=== PATIENT | male | born 1990 | race African-American/Black ===

== ENCOUNTER 2018-08-06 00:57 | Emergency (ER) | payer SELFPAY ==
[2018-08-06 01:08] VITALS: BP 134/67; PULSE 73; RESP 23; TEMP 36.7; O2SAT 98; BMI 42.7
--- NOTE | 2018-08-06 01:12 | DI.RAD.S_ITS ---
PROCEDURE: XR CHEST 1V INDICATIONS: chest pain TECHNIQUE: One view of the chest was acquired. COMPARISON: None. FINDINGS: Surgical changes and devices: None. Lungs and pleura: No pleural effusions or pneumothorax. Lungs are clear. Mediastinum: Mediastinal contours appear normal. Heart size is normal. Bones and chest wall: No suspicious bony lesions. Overlying soft tissues appear unremarkable. IMPRESSION: Reduced inspiratory volume, lordotic position, no definite acute disease when this is taken into account. Dictated by: Will Pace M.D. on 08/06/2018 at 8:49 Approved by: Will Pace M.D. on 08/06/2018 at 8:49
[2018-08-06 01:38] VITALS: BP 116/64; PULSE 70; RESP 17; O2SAT 100
[2018-08-06 01:50] LABS: Add Manual Diff / Slide Review NO; Basophils Percent Auto 1.1 % (0-2); Eosinophils Percent Auto 2.6 % (2-4); Hematocrit 42.6 % (41-53); Hemoglobin 14.4 g/dL (13.5-17.5); Lymphocytes Percent Auto 31.5 % (25-40); Mean Corpuscular HGB Conc 33.7 % (30-36); Mean Corpuscular Hemoglobin 27.6 PG (26-34); Mean Corpuscular Volume 81.8 fL (80-100); Monocytes Percent Auto 9.1 % (3-14); Neutrophils Absolute Auto 3200 /uL (1500-7000); Neutrophils Percent Auto 55.7 % (50-75); Platelet Count 231 X10^3/uL (150-400); Red Blood Cell Count 5.21 X10^6/uL (4.5-5.9); Red Cell Distribution Width 14.2 % (11.6-14.8); White Blood Cell Count 5.8 X10^3/uL (4.5-11.0)
[2018-08-06 01:59] LABS: INR 1.1 (0.9-1.3); Prothrombin Time 12.4 SECONDS (10.1-12.7)
[2018-08-06 02:01] LABS: PTT Partial Thromboplastin Tim 32 SECONDS (26.4-36.2)
[2018-08-06 02:10] LABS: Alanine Aminotransferase 40 IU/L (21-72); Albumin 4.4 g/dL (3.5-5.0); Albumin Globulin Ratio 1.5 (1.0-2.8); Alkaline Phosphatase 55 U/L (38-126); Aspartate Aminotransferase 31 IU/L (17-59); BUN Creatinine Ratio 15.6 (6-22); Bilirubin Total 0.5 mg/dL (0.2-1.3); Blood Urea Nitrogen 14 mg/dL (9-20); Calcium 9.4 mg/dL (8.4-10.2); Carbon Dioxide 26 mmol/L (22-32); Chloride 103 mmol/L (98-107); Creatine Kinase 622 U/L (55-170); Estimated Glomerular Filt Rate > 60.0 mL/min (>60); Globulin 2.9 g/dL (1.7-4.1); Glucose 99 mg/dL (70-100); HEMOLYSIS < 15 (0-50); Lipase 100 U/L (23-300); Potassium 4.2 mmol/L (3.4-5.1); Sodium 141 mmol/L (137-145); Total Protein 7.3 g/dL (6.3-8.2)
--- NOTE | 2018-08-06 02:16 | ED.CHESTPAIN ---
HPI - Chest Pain General Chief Complaint: Chest Pain Stated Complaint: LEFT UPPER SIDE ABDOMINAL PAIN Time Seen by Provider: 08/06/18 02:15 Source: patient Mode of arrival: ambulatory Limitations: no limitations History of Present Illness HPI narrative: Patient is a 28-year-old male who presents with left-sided chest pain ongoing for last 2 days. It hurts to move patient whenever he moves of or breathes. It is nonradiating. He denies any other injury. No persistent coughing. Pain is reproducible with palpation. He denies any shortness of breath is nausea vomiting. No abdominal pain. MD complaint: chest pain Onset (ago): day(s) (2) Duration: intermittent Severity: moderate Exacerbating factors: palpation and movement Related Data Home Medications Medication Instructions Recorded Confirmed No Known Home Medications 08/06/18 08/06/18 Allergies Allergy/AdvReac Type Severity Reaction Status Date / Time No Known Allergies Allergy Uncoded 11/17/17 12:41 Review of Systems Review of Systems GENERAL: Denies chills, fatigue, malaise, fever, sweats, travel HEENT: Denies sinus pain, ear pain, sore throat, difficulty swallowing, neck pain RESPIRATORY: Denies dyspnea, cough, wheezing, hemoptysis, sputum. CARDIOVASCULAR: See HPI GASTROINTESTINAL: Denies nausea, vomiting, abdominal pain, diarrhea, constipation, melena. : Denies dysuria, frequency, incontinence, hematuria, urinary retention, flank pain. MUSCULOSKELETAL: Denies weakness, joint pain, or bony pain SKIN: No rash, no erythema, no pruritus NEUROLOGIC: Denies weakness, dizziness, headache, numbness, change in speech, confusion PSYCHIATRIC: No concerning psychosocial issues. 12 point review of systems is negative except for those stated above and HPI FOR[facility]LY [facility], [facility] Medical History Patient denies medical problems (Acute) Social History Smoking Status: Never smoker substance use type: does not use Exam Initial Vital Signs Initial Vital Signs: Vital Signs Temperature 98.0 F 08/06/18 01:08 Pulse Rate 73 08/06/18 01:08 Respiratory Rate 23 08/06/18 01:08 Blood Pressure 134/67 08/06/18 01:08 Pulse Oximetry 98 08/06/18 01:08 GENERAL: Well-appearing, well-nourished and in no acute distress. HEENT: Head atraumatic,EOMI, pupils reactive, face symmetric, moist mucous membranes CARDIOVASCULAR: Regular rate and rhythm without murmurs, rubs or gallops. Pain is reproducible to palpation. It is left-sided doing ribs 6 and 7. Worse with movement RESPIRATORY: Breath sounds equal bilaterally, no wheezes rales or rhonchi. ABDOMEN: Soft, nontender. Normoactive bowel sounds all 4 quadrants. No guarding or rebound. EXTREMITIES: Normal range of motion, no clubbing or edema. Neurovascularly intact NEUROLOGICAL: Alert and oriented x4.Normal gait and speech. SKIN: Warm, dry, no laceration, no petechiae, no rashes or lesions. Course Orders Ordered: ED Orders 08/06/18 01:11 EKG-12 Lead Stat 08/06/18 01:12 XR chest 1V Stat 08/06/18 01:30 Complete Blood Count AUTO DIFF Stat Comprehensive Metabolic Panel Stat Lipase Stat Partial Thromboplastin Time Stat Prothrombin Time INR Stat Troponin & CK Cardiac Panel Stat Discontinued Medications Ibuprofen (Advil) 800 mg PO NOW ONE Stop: 08/06/18 02:24 Last Admin: 08/06/18 02:31 Dose: 800 mg Vital Signs - 8 hr 08/06/18 01:08 08/06/18 01:38 08/06/18 02:47 Temperature 98.0 F Pulse Rate 73 70 59 L Respiratory Rate 23 17 17 Blood Pressure 134/67 126/69 Blood Pressure [Left Arm] 116/64 Pulse Oximetry 98 100 100 MDM - Chest Pain Lab Data Attestation: I reviewed the patient's lab results. Result diagrams: 08/06/18 01:30 08/06/18 01:30 Lab Results 08/06/18 08/06/18 08/06/18 Range/Units 01:30 01:30 01:30 WBC 5.8 (4.5-11.0) X10^3/uL RBC 5.21 (4.5-5.9) X10^6/uL Hgb 14.4 (13.5-17.5) g/dL Hct 42.6 (41-53) % MCV 81.8 (80-100) fL MCH 27.6 (26-34) PG MCHC 33.7 (30-36) % RDW 14.2 (11.6-14.8) % Plt Count 231 (150-400) X10^3/uL Neut % (Auto) 55.7 (50-75) % Lymph % (Auto) 31.5 (25-40) % [place] % (Auto) 9.1 (3-14) % Eos % (Auto) 2.6 (2-4) % Baso % (Auto) 1.1 (0-2) % Neut # (Auto) 3200 (2805-9836) /uL PT 12.4 (10.1-12.7) SECONDS INR 1.1 (0.9-1.3) APTT 32 (26.4-36.2) SECONDS Sodium 141 (137-145) mmol/L Potassium 4.2 (3.4-5.1) mmol/L Chloride 103 (98-107) mmol/L Carbon Dioxide 26 (22-32) mmol/L BUN 14 (9-20) mg/dL Creatinine 0.90 (0.66-1.25) mg/dL Estimated GFR > 60.0 (>60) mL/min BUN/Creatinine Ratio 15.6 (6-22) Glucose 99 (70-100) mg/dL Calcium 9.4 (8.4-10.2) mg/dL Total Bilirubin 0.5 (0.2-1.3) mg/dL AST 31 (17-59) IU/L ALT 40 (21-72) IU/L Alkaline Phosphatase 55 (38-126) U/L Total Creatine Kinase 622 H (55-170) U/L CK-MB (CK-2) 2.60 H (<2.37) ng/mL CK-MB (CK-2) Rel Index 0.4 L (1.5-5.0) % Troponin I < 0.012 (0.01-0.034) ng/mL Total Protein 7.3 (6.3-8.2) g/dL Albumin 4.4 (3.5-5.0) g/dL Globulin 2.9 (1.7-4.1) g/dL Albumin/Globulin Ratio 1.5 (1.0-2.8) Lipase 100 (23-300) U/L Imaging Data Chest x-ray: Attestation: I personally reviewed and interpreted this imaging study as follows: My impression: No acute cardiopulmonary process no rib fracture ECG Data Attestation: I personally reviewed and interpreted this ECG as follows: Prior ECG tracings: not available for review Interpretation: Normal sinus rhythm rate [address] changes no T-wave inversions is no priors to compare MDM Narrative Medical decision making narrative: Patient's pain is reproducible with palpation and movement ongoing for the last 2 days. More consistent with costochondritis. Chest x-ray is negative. Discharge Plan Departure Patient Disposition: Home Clinical Impression: Acute costochondritis Discharge Date/Time: 08/06/18 02:45 Interventions: ED Discharge Assessment Last Done: 08/06/18 02:47 Instructions: Costochondritis Activity Restrictions/Additional Instructions: *You have been diagnosed with costochondritis *What to do: Inflammation between ribs. X-ray and blood work are reassuring. Does look like you are slightly dehydrated increase fluid intake *Continue to take medications as directed Motrin 800 mg every 8 hr if needed for pain *Follow up with your primary care provider in 2-3 days *Return to ER if you should have increasing pain, palpitations, dizziness, shortness of breath or any new, worsening or concerning symptoms Prescriptions: No Action No Known Home Medications RF: 0 Referrals: [facility] [Provider Group]
[2018-08-06 02:23] LABS: Troponin I < 0.012 ng/mL (0.01-0.034)
[2018-08-06 02:26] LABS: CKMB % Relative Index 0.4 % (1.5-5.0)
[2018-08-06] MEDS: IBUPROFEN 400 MG TABLET 800 MG PO (02:31)
[2018-08-06 02:47] VITALS: BP 126/69; PULSE 59; RESP 17; O2SAT 100
== END 2018-08-06 02:45 | disposition home or self-care (01) ==
PROVIDERS: Emergency Provider Emergency Medicine
DX: M94.0 Chondrocostal junction syndrome [Tietze] (principal)
CPT/HCPCS: 36415; 71045; 80053; 82550; 82553; 83690; 84484; 85025; 85610; 85730; 93005; 99283; 99285

== ENCOUNTER → 2020-05-06 12:53 | Outpatient (CLI) | payer OTHER, SELFPAY ==
[2020-05-06 13:43] LABS: Appearance Urine UA CLEAR; Bilirubin Urine UA NEGATIVE (NEGATIVE); Color Urine UA YELLOW; Glucose Urine UA NEGATIVE (Negative); Ketones Urine UA NEGATIVE (NEGATIVE); Leukocyte Esterase Urine UA NEGATIVE (NEGATIVE); Nitrite Urine UA NEGATIVE (Negative); Occult Blood Urine UA NEGATIVE (Negative); Protein Urine UA NEGATIVE (Negative); Specific Gravity Urine UA 1.025 (1.000-1.035); Urobilinogen Urine UA 0.2 E.U./dL (0.2)
[2020-05-06 13:44] LABS: Add Manual Diff / Slide Review NO; Basophils Absolute Auto 100 /uL (0-100); Basophils Percent Auto 0.8 % (0-2); Eosinophils Absolute Auto 100 /uL (0-450); Eosinophils Percent Auto 1.7 % (2-4); Hematocrit 45.4 % (41-53); Hemoglobin 14.8 g/dL (13.5-17.5); Lymphocytes Absolute Auto 2700 /uL (1100-4500); Lymphocytes Percent Auto 36.1 % (25-40); Mean Corpuscular HGB Conc 32.6 % (30-36); Mean Corpuscular Hemoglobin 27.2 PG (26-34); Mean Corpuscular Volume 83.5 fL (80-100); Monocytes Absolute Auto 600 /uL (0-900); Monocytes Percent Auto 8.5 % (3-14); Neutrophils Absolute Auto 3900 /uL (1500-7000); Neutrophils Percent Auto 52.9 % (50-75); Platelet Count 241 X10^3/uL (150-400); Red Blood Cell Count 5.44 X10^6/uL (4.5-5.9); Red Cell Distribution Width 14.7 % (11.6-14.8); White Blood Cell Count 7.4 X10^3/uL (4.5-11.0)
[2020-05-06 13:58] LABS: Alanine Aminotransferase 49 IU/L (<50); Albumin 4.5 g/dL (3.5-5.0); Albumin Globulin Ratio 1.5 (1.0-2.8); Alkaline Phosphatase 58 U/L (38-126); Aspartate Aminotransferase 40 IU/L (17-59); BUN Creatinine Ratio 10.2 (6-22); Bilirubin Total 0.6 mg/dL (0.2-1.3); Blood Urea Nitrogen 9 mg/dL (9-20); Calcium 9.5 mg/dL (8.4-10.2); Carbon Dioxide 30 mmol/L (22-32); Chloride 104 mmol/L (98-107); Cholesterol 188 mg/dL (140-199); Estimated Glomerular Filt Rate > 60.0 mL/min (>60); Glucose 98 mg/dL (70-100); HDL Cholesterol 36 mg/dL (40-60); HEMOLYSIS < 15 (0-50); Hemoglobin A1C% w Est Avg Glu 6.2 % (4.0-6.0); Potassium 3.8 mmol/L (3.4-5.1); Sodium 139 mmol/L (137-145); Total Protein 7.5 g/dL (6.3-8.2); Triglycerides 427 mg/dL (35-150)
== END ==
PROVIDERS: PCP Registered Nurse; Referring Provider Registered Nurse; Visit Provider Registered Nurse
DX: Z00.00 Encounter for general adult medical examination without abnormal findings (principal); R73.03 Prediabetes
CPT/HCPCS: 36415; 80053; 80061; 81003; 83036; 85025

== ENCOUNTER → 2020-06-19 13:54 | Outpatient (CLI) | payer SELFPAY ==
--- NOTE | 2020-06-19 15:07 | DIET.PN ---
Dietary Progress Note Assessment: 29y M referred to nutrition for preDM, morbid obesity, and HTL. Pt has goals in mind and has been thinking a lot of getting healthier but having some difficulty with lining up the pieces. 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 Pt was 185# in high school, noticed weight increase after of first child at 22yo continuing today. 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 Potentially working 5d/w at 12h shifts Pts diet is convenience based with high intake refined carbs, soda (32-64oz/d), daily fast food, and low intake F/V/soluble fiber contributing to his current nutrition status. HT: 5'11 WT: 352# (260# weight goal) BMI: 49.1 Labs: A1c 6.2 H, HDL 39 L, TG 450 H Nutrition Diagnosis: altered nutrition related laboratory values r/t undesirable food choices and physical inactivity aeb BMI 49, preDM, HTG, pt food recall showing reliance on ultraprocessed foods with low intake F/V/soluble fiber. Interventions: 1. Discussed pts nutritional laboratory values, explained triglycerides and A1c and ways to normalize these values. 2. Introduced pt to balanced plate using handout and food models. Encouraged pt to follow this model for family and personal meals and snacks. 3. Practiced label reading in context of added sugar, used labels to see serving size and encouraged pt to limit added sugar to 20g/d. 4. Discussed role of soluble fiber in diet to manage obesity, HTG, and preDM, provided high fiber MNT packet with meal and snack ideas. 5. Discussed role of physical activity in supporting lean body mass and weight loss. Pt wants to join gym but having difficulty finding time. Encouraged pt to find [employer] station with HIIT workouts to try as these are short and can be done without equipment while the kids are home. Monitoring/Evaluations: f/u in 4w to assess progress and problem solve barriers.
== END ==
PROVIDERS: PCP Registered Nurse; Referring Provider Registered Nurse; Visit Provider Registered Nurse
DX: E66.01 Morbid (severe) obesity due to excess calories (principal); R73.03 Prediabetes; E78.5 Hyperlipidemia, unspecified; Z71.3 Dietary counseling and surveillance; Z68.42 Body mass index [BMI] 45.0-49.9, adult
CPT/HCPCS: 97802

== ENCOUNTER 2020-07-29 21:53 | Emergency (ER) | payer SELFPAY ==
[2020-07-29 22:12] VITALS: BP 152/76; PULSE 91; RESP 16; TEMP 36.9; O2SAT 97; BMI 48.8
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
[2020-07-29] MEDS: KETOROLAC 60 MG/2 ML VIAL IM (22:36)
[2020-07-29] MEDS: CYCLOBENZAPRINE 10 MG PREPACK 1 BOTTLE MISC (22:37)
[2020-07-29 23:17] VITALS: BP 151/82; PULSE 85; RESP 16; O2SAT 98
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
== END 2020-07-29 23:17 | disposition home or self-care (01) ==
PROVIDERS: Emergency Provider Emergency Medicine; PCP Registered Nurse
DX: S29.019A Strain of muscle and tendon of unspecified wall of thorax, initial encounter (principal); M54.5 Low back pain; V43.52XA Car driver injured in collision with other type car in traffic accident, initial encounter
CPT/HCPCS: 72072; 99281; 99283; J1885

== ENCOUNTER 2023-07-20 10:59 | Emergency (ER) | payer SELFPAY ==
[2023-07-20 11:00] VITALS: BP 145/71; PULSE 90; RESP 25; TEMP 36.7; O2SAT 99; BMI 50.2
[2023-07-20 11:04] VITALS: BP 145/71
[2023-07-20 11:05] VITALS: PULSE 90; O2SAT 98
--- NOTE | 2023-07-20 11:06 | DI.RAD.S_ITS ---
PROCEDURE: XR CHEST 1V INDICATIONS: Shortness of breath TECHNIQUE: One view of the chest was acquired. COMPARISON: [facility], , XR CHEST 1V, 08/06/2018, 1:34. FINDINGS: Surgical changes and devices: None. Lungs and pleura: There is moderate patchy airspace opacity at the right medial lung base. No pleural effusions or pneumothorax. Mediastinum: Mediastinal contours appear normal. Heart size is enlarged. Bones and chest wall: No suspicious bony lesions. Overlying soft tissues appear unremarkable. IMPRESSION: Right lung base pneumonia. Continued plain film surveillance is recommended to ensure resolution, and to exclude underlying or central malignancy. Dictated by: Saran Khoury M.D. on 07/20/2023 at 11:22 Approved by: Saran Khoury M.D. on 07/20/2023 at 11:23
--- NOTE | 2023-07-20 11:24 | ED.SOB ---
HPI - SOB/Dyspnea General Chief Complaint: Shortness of Breath/Dyspnea Stated Complaint: swelling on both feet, chest pain Time Seen by Provider: 07/20/23 11:12 Source: patient Mode of arrival: Ambulatory Limitations: no limitations History of Present Illness HPI Narrative: 33-year-old uses tobacco regularly who presents with complaint of bilateral lower extremity swelling in his it has been going on for several months it has been a little bit worse recently. Had some chest pressure on and off over the last several months last episode was several days ago. Patient has also had occasional shortness of breath with exertion or if he lays flat. Patient states his feet have been a little bit more painful and felt tight. He is noted that that is indent from his socks have been more persistent. Then he feels like the swelling is a little bit higher up his calves. Patient states he is not had any diaphoresis. Not having any chest pain or shortness of breath currently. Denies any nausea or vomiting. No issues with bowel movements or urination. Patient denies any recent fevers or chills. No cold cough or congestion symptoms. Patient states no known medical issues. No prior surgeries. No known drug allergies. He does smoke tobacco but has switched over more to vaping. Occasional alcohol but he states not regularly. No marijuana or other recreational drugs. Does have family history dad in January from congestive heart failure at age 56. States his sister has asthma and many other medical problems. Patient states strong history of diabetes in the family. Patient does not currently have a primary care physician. Related Data Previous Rx's Medication Instructions Recorded cyclobenzaprine 10 mg tablet 10 mg PO TID PRN muscle spasm #14 07/29/20 tabs ketorolac 10 mg tablet 10 mg PO Q6H PRN pain #14 tabs 07/29/20 amoxicillin 875 mg-potassium 1 tab PO Q12H #14 tabs 07/20/23 clavulanate 125 mg tablet Allergies Allergy/AdvReac Type Severity Reaction Status Date / Time No Known Drug Allergies Allergy Verified 07/20/23 11:06 Review of Systems Review of Systems ROS Unobtainable: All systems reviewed & are unremarkable except as noted in HPI and below Patient History Medical History (Updated 07/20/23 @ 12:14 by Tressa Solomon DO) Patient denies medical problems Social History Smoking Status: Current every day smoker substance use type: does not use Smoking Status: Current every day smoker alcohol intake frequency: holidays/special occasions only Substance Use Type: does not use Exam Narrative Exam Narrative: GENERAL: Alert and oriented x three, male in mild distress with BMI of 50 HEENT: Head normocephalic, atraumatic, EOMI, pupils reactive, face symmetric, moist mucous membranes NECK: Supple, full range of motion CARDIOVASCULAR: Regular rate and rhythm without murmurs, rubs or gallops.Patient has trace edema does have intense from his socks but no pitting edema. RESPIRATORY: Breath sounds equal bilaterally, no wheezes rales or rhonchi. No tachypnea. No accessory muscle use. Patient's speaks in full sentences. ABDOMEN: Soft, nontender. Normoactive bowel sounds all 4 quadrants. No guarding or rebound, rigidity, no mass : No CVA tenderness EXTREMITIES: Normal range of motion, 2+ pulses bilateral lower extremities. Neurovascularly intact NEUROLOGICAL: Cranial nerves II through XII grossly intact. Moving all extremities SKIN: Warm, dry, no petechiae, no rashes or lesions. Initial Vital Signs Initial Vital Signs: Vital Signs Temperature 98.1 F 07/20/23 11:00 Pulse Rate 90 07/20/23 11:00 Respiratory Rate 25 H 07/20/23 11:00 Blood Pressure 145/71 H 07/20/23 11:00 Pulse Oximetry 99 07/20/23 11:00 Oxygen Delivery Method Room Air 07/20/23 11:00 Scores HEART Score Heart Score history: Slightly Suspicious Heart Score EKG: Non-Specific repolarization disturbance Heart Score Age: < 45 years old Heart Score risk factors: 1-2 risk factors Course Orders Ordered: ED Orders 07/20/23 11:06 XR chest 1V Stat EKG-12 Lead Stat Measure peak expiratory flow ONCE RT Consult Eval and Treat NOW 07/20/23 11:30 Complete Blood Count AUTO DIFF Stat Comprehensive Metabolic Panel Stat Lactate (Lactic Acid) Stat NT-proBNP (BNP-Adult 18+) Stat Prothrombin Time INR Stat Troponin & CK Cardiac Panel Stat Vital Signs Vital signs: Vital Signs - 8 hr 07/20/23 11:00 07/20/23 11:04 07/20/23 11:05 Temperature 98.1 F Pulse Rate 90 90 Respiratory Rate 25 H Blood Pressure 145/71 H 145/71 H Pulse Oximetry 99 98 Oxygen Delivery Method Room Air 07/20/23 11:30 07/20/23 11:30 07/20/23 12:00 Temperature Pulse Rate 84 77 Respiratory Rate 22 Blood Pressure 152/84 H Pulse Oximetry 100 100 Oxygen Delivery Method 07/20/23 12:54 Temperature Pulse Rate 79 Respiratory Rate Blood Pressure 122/66 Pulse Oximetry 100 Oxygen Delivery Method Room Air MDM - SOB/Dyspnea Lab Data 07/20/23 11:30 07/20/23 11:30 Labs: Lab Results 07/20/23 07/20/23 Range/Units 11:30 11:30 WBC 6.9 (4.5-11.0) X10^3/uL RBC 5.04 (4.5-5.9) X10^6/uL Hgb 13.6 (13.5-17.5) g/dL Hct 41.0 (41-53) % MCV 81.4 (80-100) fL MCH 26.9 (26-34) PG MCHC 33.1 (30-36) % RDW 14.8 (11.6-14.8) % Plt Count 290 (150-400) X10^3/uL Neut % (Auto) 57.5 (50-75) % Lymph % (Auto) 29.3 (25-40) % [place] % (Auto) 9.8 (3-14) % Eos % (Auto) 2.2 (2-4) % Baso % (Auto) 1.2 (0-2) % Neut # (Auto) 4000 (5420-2412) /uL Lymph # (Auto) 2000 (4380-9981) /uL [place] # (Auto) 700 (0-900) /uL Eos # (Auto) 200 (0-450) /uL Baso # (Auto) 100 (0-100) /uL PT 13.0 H (9.4-12.5) SECONDS INR 1.1 (0.9-1.3) Sodium 137 (137-145) mmol/L Potassium 4.0 (3.4-5.1) mmol/L Chloride 102 (98-107) mmol/L Carbon Dioxide 27 (22-32) mmol/L BUN 10 (9-20) mg/dL Creatinine 0.82 (0.66-1.25) mg/dL Estimated GFR > 60 (>60) mL/min BUN/Creatinine Ratio 12.2 (6-22) Glucose 108 H (70-100) mg/dL Lactate 0.9 (0.7-2.1) mmol/L Calcium 9.6 (8.4-10.2) mg/dL Total Bilirubin 0.6 (0.2-1.3) mg/dL AST 40 (17-59) IU/L ALT 67 H (<50) IU/L Alkaline Phosphatase 74 (38-126) U/L Total Creatine Kinase 330 H (55-170) U/L Troponin I Cancelled < 0.012 NT-Pro-B Natriuret Pep < 20 (<125) pg/mL Total Protein 8.0 (6.3-8.2) g/dL Albumin 4.2 (3.5-5.0) g/dL Globulin 3.8 (1.7-4.1) g/dL Albumin/Globulin Ratio 1.1 (1.0-2.8) Imaging Data Chest x-ray: Radiologist's Impression: [place] [address] XRay Report Signed Patient: Crescencio Spears MR#: [id number] : 1990 Acct:[id number] Age/Sex: 33 / M Date of Service: 07/20/23 Loc: ED Accession Number: [id number] Procedure: XR chest 1V Ordering Provider: Tressa Solomon D.O. PROCEDURE: XR CHEST 1V INDICATIONS: Shortness of breath TECHNIQUE: One view of the chest was acquired. COMPARISON: [facility], , XR CHEST 1V, 08/06/2018, 1:34. FINDINGS: Surgical changes and devices: None. Lungs and pleura: There is moderate patchy airspace opacity at the right medial lung base. No pleural effusions or pneumothorax. Mediastinum: Mediastinal contours appear normal. Heart size is enlarged. Bones and chest wall: No suspicious bony lesions. Overlying soft tissues appear unremarkable. IMPRESSION: Right lung base pneumonia. Continued plain film surveillance is recommended to ensure resolution, and to exclude underlying or central malignancy. Dictated by: Saran Khoury M.D. on 07/20/2023 at 11:22 Approved by: Saran Khoury M.D. on 07/20/2023 at 11:23 ECG Data Attestation: I personally reviewed and interpreted this ECG as follows: Prior ECG tracings: available for review Interpretation: Sinus rhythm rate 87 IA 186 QRS of 100 QTC of 430. Patient has a incomplete right bundle-branch. No obvious ST elevation depression, patient has prior from 08/06/2018 with incomplete right bundle-branch similar appearing T-waves in lateral leads. MDM Narrative Medical decision making narrative: 33-year-old male with complaint of shortness a breath increasing swelling extremities and occasional chest pain for the past several weeks to months. Patient does have family history dad of congestive heart failure at age 56 notes he has a strong history of diabetes and sister has asthma and multiple other medical problems. Patient vapes tobacco but no other reported medical issues he does have a BMI of 50. Patient's exam overall reassuring. CBC shows no major changes. Coags are negative CMP CBC shows a glucose of 108 otherwise normal electrolytes renal function, ALT 67 otherwise normal LFTs. Lactate negative at 0.9. CK is 330 with a negative troponin negative BNP. EKG EKG shows incomplete right bundle-branch, left atrial enlargement does not have significant new ischemic changes or changes from prior in 2018 Chest x-ray chest x-ray shows moderate patchy airspace opacity right medial lung. Suspected right lung base pneumonia. Patient has not had any chest pain or pressure for the past several days, does not have significant swelling to start diuretic at this time and lab workup is overall reassuring. I do recommend patient follow up with primary care for further workup and risk management has a BMI of 34 with strong family history. Chest x-ray does show some patchy airspace change concerning for pneumonia would treat with antibiotic. Discussed return precautions all questions answered. Discharge Plan Departure Patient Disposition: Home Clinical Impression: Pneumonia Activity Restrictions/Additional Instructions: Your workup today shows changes consistent with pneumonia on your chest x-ray. I do recommend you follow up for primary care to be more fully evaluated for risk factors such as diabetes, hypertension or elevated cholesterol. Please call to set up a follow up appointment. There is a card included in your paperwork with a QR code. Please scan this or look at the website it has several primary care physicians taking new patients currently. Take antibiotics until they are completed. Prescription sent to [facility]. Please return for new or worsening chest pain, shortness of breath, lightheadedness or passing out, sweatiness, nausea or vomiting, increasing swelling in extremities or other new or concerning changes. Prescriptions: New amoxicillin-pot clavulanate 875-125 mg tablet 1 tab PO Q12H Qty: 14 0RF No Action cyclobenzaprine 10 mg tablet 10 mg PO TID PRN (Reason: muscle spasm) Qty: 14 0RF ketorolac 10 mg tablet 10 mg PO Q6H PRN (Reason: pain) Qty: 14 0RF Stand Alone Forms: Patient Portal/API
[2023-07-20 11:30] VITALS: BP 152/84; PULSE 84; RESP 22; O2SAT 100
[2023-07-20 11:39] LABS: Add Manual Diff / Slide Review NO; Basophils Absolute Auto 100 /uL (0-100); Basophils Percent Auto 1.2 % (0-2); Eosinophils Absolute Auto 200 /uL (0-450); Eosinophils Percent Auto 2.2 % (2-4); Hemoglobin 13.6 g/dL (13.5-17.5); Lymphocytes Absolute Auto 2000 /uL (1100-4500); Lymphocytes Percent Auto 29.3 % (25-40); Mean Corpuscular HGB Conc 33.1 % (30-36); Mean Corpuscular Hemoglobin 26.9 PG (26-34); Mean Corpuscular Volume 81.4 fL (80-100); Monocytes Absolute Auto 700 /uL (0-900); Monocytes Percent Auto 9.8 % (3-14); Neutrophils Absolute Auto 4000 /uL (1500-7000); Neutrophils Percent Auto 57.5 % (50-75); Platelet Count 290 X10^3/uL (150-400); Red Blood Cell Count 5.04 X10^6/uL (4.5-5.9); Red Cell Distribution Width 14.8 % (11.6-14.8); White Blood Cell Count 6.9 X10^3/uL (4.5-11.0)
[2023-07-20 11:46] LABS: INR 1.1 (0.9-1.3)
[2023-07-20 11:50] LABS: Creatine Kinase 330 U/L (55-170)
[2023-07-20 11:51] LABS: Lactate (Lactic Acid) 0.9 mmol/L (0.7-2.1)
[2023-07-20 11:52] LABS: Alanine Aminotransferase 67 IU/L (<50); Albumin 4.2 g/dL (3.5-5.0); Albumin Globulin Ratio 1.1 (1.0-2.8); Alkaline Phosphatase 74 U/L (38-126); Aspartate Aminotransferase 40 IU/L (17-59); BUN Creatinine Ratio 12.2 (6-22); Bilirubin Total 0.6 mg/dL (0.2-1.3); Blood Urea Nitrogen 10 mg/dL (9-20); Calcium 9.6 mg/dL (8.4-10.2); Carbon Dioxide 27 mmol/L (22-32); Chloride 102 mmol/L (98-107); Estimated Glomerular Filt Rate > 60 mL/min (>60); Globulin 3.8 g/dL (1.7-4.1); Glucose 108 mg/dL (70-100); HEMOLYSIS < 15 (0-50); Sodium 137 mmol/L (137-145)
[2023-07-20 12:00] VITALS: PULSE 77; O2SAT 100
[2023-07-20 12:01] LABS: NT-proBNP (BNP-Adult 18+) < 20 pg/mL (<125)
[2023-07-20 12:04] LABS: Troponin I < 0.012 ng/mL (0.01-0.034)
[2023-07-20 12:54] VITALS: BP 122/66; PULSE 79; O2SAT 100
== END 2023-07-20 12:54 | disposition home or self-care (01) ==
PROVIDERS: Emergency Provider Emergency Medicine
DX: J18.9 Pneumonia, unspecified organism (principal); F17.200 Nicotine dependence, unspecified, uncomplicated
CPT/HCPCS: 71045; 80053; 82550; 83605; 83880; 84484; 85025; 85610; 93005; 93010; 99283

== ENCOUNTER 2023-12-28 21:08 | Emergency (ER) | payer OTHER, SELFPAY ==
[2023-12-28] VITALS (12 sets, daily range): BP systolic 124–179; BP diastolic 55–107; PULSE 81–108; RESP 16–18; TEMP 37; O2SAT 96–99; BMI 50.2
--- NOTE | 2023-12-28 21:24 | DI.RAD.S_ITS ---
PROCEDURE: XR ANKLE LT MIN 3V INDICATIONS: Possible Achilles tendon tear TECHNIQUE: 3 views of the ankle were acquired. COMPARISON: None. FINDINGS: Bones: No fractures or dislocations. Ankle mortise is normally aligned. No suspicious bony lesions. There is mild degenerative dorsal spurring in the hind and midfoot. Soft tissues: No tibiotalar joint effusion. Achilles tendon appears normal. There is a small ossification posterior to the tibiotalar joint, nonspecific. IMPRESSION: Radiographic appearance of the Achilles tendon is normal. For further evaluation, MRI or ultrasound could be performed. No fracture or joint effusion. Dictated by: Ally Trimble M.D. on 12/28/2023 at 22:52 Approved by: Ally Trimble M.D. on 12/28/2023 at 22:54
--- NOTE | 2023-12-28 21:29 | ED_ITS ---
HPI - Extremity Injury (Lower) General Chief Complaint: Extremity Injury, Lower Stated Complaint: left leg,heard pop, numb foot, pain up calf Time Seen by Provider: 12/28/23 21:12 Source: patient Mode of arrival: Ambulatory History of Present Illness HPI Narrative: Patient is a 33-year-old male. Is playing basketball. Initially thought that the basketball hit him in the back of the leg but since that time has had pain in his Achilles tendon area and also his left calf muscle. No other injuries from the event. Right now most of his pain is in the calf muscle. Has been ambulatory but with quite a bit of discomfort. No prior injury to this area. Related Data Previous Rx's Medication Instructions Recorded cyclobenzaprine 10 mg tablet 10 mg PO TID PRN muscle spasm #14 07/29/20 tabs ketorolac 10 mg tablet 10 mg PO Q6H PRN pain #14 tabs 07/29/20 amoxicillin 875 mg-potassium 1 tab PO Q12H #14 tabs 07/20/23 clavulanate 125 mg tablet hydrocodone 7.5 mg-acetaminophen 1 tab PO Q4-6H PRN pain #10 tabs 12/28/23 325 mg tablet Allergies Allergy/AdvReac Type Severity Reaction Status Date / Time No Known Drug Allergies Allergy Verified 07/20/23 11:06 Review of Systems Musculoskeletal Musculoskeletal: Reports system reviewed and no additional complaints, except as documented Integumentary/Breasts Skin/Breast: Reports system reviewed and no additional complaints, except as documented Neurologic Neurologic: Reports system reviewed and no additional complaints, except as documented Patient History Medical History (Updated 12/28/23 @ 21:40 by Neil Rascon DO) Patient denies medical problems Social History Smoking Status: Current every day smoker substance use type: does not use Smoking Status: Current every day smoker alcohol intake frequency: holidays/special occasions only Substance Use Type: does not use Exam Initial Vital Signs Initial Vital Signs: Vital Signs Temperature 98.6 F 12/28/23 21:22 Pulse Rate 96 H 12/28/23 21:22 Respiratory Rate 16 12/28/23 21:22 Blood Pressure 144/91 H 12/28/23 21:22 Pulse Oximetry 97 12/28/23 21:22 Oxygen Delivery Method Room Air 12/28/23 21:22 Cardio Pulses: dorsalis pedis present on the left Skin General: no rashes or lesions noted Neuro Sensory Exam: no sensory deficits noted Extrem Other: Patient has a palpable deformity of the left Achilles tendon which is where he is having quite a bit of his discomfort. Procedures Orthopedic Splinting/Casting Injury #1: Side: left Lower Extremity Injury Location: ankle Lower Extremity Immobilizer: posterior splint Other Orthopedic Equipment: crutches Post splinting neuro exam: no change Post splinting vascular exam: no change Placed by: Nursing Course Orders Ordered: ED Orders 12/28/23 21:24 XR ankle LT min 3V Stat Discontinued Medications Hydrocodone Bitart/Acetaminophen (Hydrocodone/Acet 5/325 Prepack) 1 bottle MISC DIRECTED ONE Stop: 12/28/23 21:42 Last Admin: 12/28/23 21:48 Dose: 1 bottle Documented By: EVGENY Vital Signs Vital signs: Vital Signs - 8 hr 12/28/23 21:22 Temperature 98.6 F Pulse Rate 96 H Respiratory Rate 16 Blood Pressure 144/91 H Pulse Oximetry 97 Oxygen Delivery Method Room Air [facility] - Extremity Injury (Lower) Imaging Data Extremity x-ray #1: Radiologist's Impression: PROCEDURE: XR ANKLE LT MIN 3V INDICATIONS: Possible Achilles tendon tear TECHNIQUE: 3 views of the ankle were acquired. COMPARISON: None. FINDINGS: Bones: No fractures or dislocations. Ankle mortise is normally aligned. No suspicious bony lesions. There is mild degenerative dorsal spurring in the hind and midfoot. Soft tissues: No tibiotalar joint effusion. Achilles tendon appears normal. There is a small ossification posterior to the tibiotalar joint, nonspecific. IMPRESSION: Radiographic appearance of the Achilles tendon is normal. For further evaluation, MRI or ultrasound could be performed. No fracture or joint effusion. [facility] Narrative Medical decision making narrative: Patient is neurovascularly intact. His physical exam is most consistent with at least a partial if not a full Achilles tendon rupture. He was placed in a posterior splint in plantar flexion. Was placed on crutches. Instructed that he needs to follow-up with orthopedic surgery. He was given return precautions. He expressed understanding and agreement. Discharge Plan Departure Patient Disposition: Home Clinical Impression: Achilles tendon injury Instructions: How to Use Crutches, How to Take Care of Your Splint, DI for Achilles Tendon Rupture Activity Restrictions/Additional Instructions: The splint that was placed today needs be treated like a cast. You need to keep it on and keep it clean and keep it dry. Use the crutches. Contact the Orthopedic Department of the number provided below for a follow-up. Return to the emergency department for new or worsening symptoms. Prescriptions: New hydrocodone-acetaminophen 7.5-325 mg tablet 1 tab PO Q4-6H PRN (Reason: pain) Qty: 10 0RF No Action cyclobenzaprine 10 mg tablet 10 mg PO TID PRN (Reason: muscle spasm) Qty: 14 0RF ketorolac 10 mg tablet 10 mg PO Q6H PRN (Reason: pain) Qty: 14 0RF amoxicillin-pot clavulanate 875-125 mg tablet 1 tab PO Q12H Qty: 14 0RF Referrals: Eileen Hernandez MD [Physician] - Stand Alone Forms: Patient Portal/API, Work Release Note
[2023-12-28] MEDS: HYDROCODONE/ACET 5/325 PREPACK 1 BOTTLE MISC (21:48)
== END 2023-12-28 23:35 | disposition home or self-care (01) ==
PROVIDERS: Emergency Provider Emergency Medicine
DX: S86.002A Unspecified injury of left Achilles tendon, initial encounter (principal); X58.XXXA Exposure to other specified factors, initial encounter; Y93.67 Activity, basketball
CPT/HCPCS: 29515; 73610; 99283

== ENCOUNTER 2024-07-01 15:17 | Observation (INO) | payer OTHER, SELFPAY ==
[2024-07-01] VITALS (18 sets, daily range): BP systolic 113–162; BP diastolic 58–104; PULSE 87–113; RESP 16–28; TEMP 36–36.9; O2SAT 93–100; BMI 54.2
--- NOTE | 2024-07-01 15:34 | DI.RAD.S_ITS ---
PROCEDURE: XR CHEST 1V INDICATIONS: Shortness of breath TECHNIQUE: One view of the chest was acquired. COMPARISON: [facility], CR, XR CHEST 1 VIEW, 09/29/2023, 0:02. Outside Film, CT, CT ANGIO CHEST, 09/26/2023, 0:10. [facility], CR, XR CHEST 1V, 07/20/2023, 11:01. FINDINGS: Surgical changes and devices: None. Lungs and pleura: An incomplete inspiratory result is noted, causing a crowded appearance to the lung markings. No focal infiltrates are seen. No pneumothorax or significant pleural effusions are seen. Mediastinum: Mediastinal contours appear normal. Heart size is at the upper limits of normal. Bones and chest wall: No suspicious bony lesions. Overlying soft tissues appear unremarkable. IMPRESSION: Limited portable chest examination, without a significant cardiopulmonary abnormality identified. Dictated by: Ham Yu M.D. on 07/01/2024 at 16:07 Approved by: Ham Yu M.D. on 07/01/2024 at 16:08
[2024-07-01] MEDS: ALBUTEROL/IPRATROPIUM 3 ML AMPUL INH (15:44)
[2024-07-01] MEDS: ALBUTEROL 2.5 MG/3 ML NEB (ADULT) INH ×2 (15:56→22:07)
--- NOTE | 2024-07-01 16:03 | EKG_ITS ---
[place] [id number] [place] [id number] Test Date: 2024-07-01 Pat Name: Crescencio Spears Department: Room: Gender: Male [employer] Driver: HENRY : 1990 Requested By: Order Number: [id number] Reading MD: Benja Del Valle Measurements Intervals Simpson Rate: 87 P: 44 AL: 174 QRS: 52 QRSD: 100 T: 47 QT: 372 QTc: 447 Interpretive Statements Normal sinus rhythm Incomplete right bundle branch block Nonspecific T wave abnormality Electronically Signed On 07-03-2024 7:50:07 PST by Benja Del Valle
[2024-07-01 16:07] LABS: Add Manual Diff / Slide Review NO; Basophils Absolute Auto 100 /uL (0-100); Basophils Percent Auto 0.6 % (0-2); Eosinophils Absolute Auto 200 /uL (0-450); Eosinophils Percent Auto 2.2 % (2-4); Hematocrit 43.1 % (41-53); Hemoglobin 14.3 g/dL (13.5-17.5); Lymphocytes Absolute Auto 2100 /uL (1100-4500); Lymphocytes Percent Auto 22.1 % (25-40); Mean Corpuscular HGB Conc 33.1 % (30-36); Mean Corpuscular Hemoglobin 27.1 PG (26-34); Mean Corpuscular Volume 82.1 fL (80-100); Monocytes Absolute Auto 900 /uL (0-900); Monocytes Percent Auto 9.1 % (3-14); Neutrophils Absolute Auto 6200 /uL (1500-7000); Platelet Count 248 X10^3/uL (150-400); Prothrombin Time 11.5 SECONDS (9.4-12.5); Red Blood Cell Count 5.25 X10^6/uL (4.5-5.9); Red Cell Distribution Width 15.3 % (11.6-14.8); White Blood Cell Count 9.4 X10^3/uL (4.5-11.0)
[2024-07-01 16:09] LABS: Lactate (Lactic Acid) 1.1 mmol/L (0.7-2.1); PTT Partial Thromboplastin Tim 32 SECONDS (25.1-36.5)
[2024-07-01 16:10] LABS: Alanine Aminotransferase 40 IU/L (<50); Albumin 4.5 g/dL (3.5-5.0); Albumin Globulin Ratio 1.4 (1.0-2.8); Alkaline Phosphatase 58 U/L (38-126); Aspartate Aminotransferase 37 IU/L (17-59); BUN Creatinine Ratio 12.9 (6-22); Bilirubin Total 0.6 mg/dL (0.2-1.3); Blood Urea Nitrogen 12 mg/dL (9-20); Calcium 9.6 mg/dL (8.4-10.2); Carbon Dioxide 27 mmol/L (22-32); Chloride 106 mmol/L (98-107); Estimated Glomerular Filt Rate > 60 mL/min (>60); Globulin 3.3 g/dL (1.7-4.1); Glucose 107 mg/dL (70-100); HEMOLYSIS 16 (0-50); Potassium 3.9 mmol/L (3.4-5.1); Sodium 140 mmol/L (137-145); Total Protein 7.8 g/dL (6.3-8.2)
[2024-07-01 16:11] LABS: Creatine Kinase 345 U/L (55-170); Magnesium 1.9 mg/dL (1.6-2.3)
[2024-07-01 16:19] LABS: NT-proBNP (BNP-Adult 18+) < 20 pg/mL (<125)
[2024-07-01 16:22] LABS: Troponin I < 0.012 ng/mL (0.01-0.034)
[2024-07-01 16:37] LABS: Lipase 152 U/L (23-300)
[2024-07-01] MEDS: ALBUTEROL 2.5 MG/3 ML NEB (ADULT) 20 MG INH (17:42)
[2024-07-01] MEDS: DEXAMETHASONE 10 MG/ML VIAL IV (17:57)
--- NOTE | 2024-07-01 18:57 | ED.SOB ---
HPI - SOB/Dyspnea General Chief Complaint: Shortness of Breath/Dyspnea Stated Complaint: SoB Time Seen by Provider: 07/01/24 17:36 Source: patient Mode of arrival: Ambulatory Limitations: no limitations History of Present Illness HPI Narrative: 33-year-old male with history of sarcoidosis presents by private vehicle from home for 3-4 days of shortness of breath. Patient is seen yesterday at [facility], he states that he was given a nebulizer treatment and initially felt improved, however overnight he began to have shortness of breath again and it worsened throughout the day. Patient states that he was so short of breath he could barely walk from the parking lot to the check-in office when he arrived to [facility]. He states that he was initially placed on prednisone by his farm mortgage agent at [facility], but in February of this year he had surgery on his Achilles and was told by orthopedics that his healing [place] impaired by prednisone, and he was not been on any steroids since his surgery. Related Data Allergies Allergy/AdvReac Type Severity Reaction Status Date / Time No Known Drug Allergies Allergy Verified 07/01/24 15:33 Patient History Medical History (Updated 07/01/24 @ 22:53 by Bere Garcia DO) Patient denies medical problems Social History household members: other Smoking Status: Current every day smoker substance use type: does not use Smoking Status: Current every day smoker alcohol intake frequency: holidays/special occasions only Substance Use Type: does not use Exam Initial Vital Signs Initial Vital Signs: Vital Signs Temperature 98.5 F 07/01/24 15:26 Pulse Rate 87 07/01/24 15:26 Respiratory Rate 28 H 07/01/24 15:26 Blood Pressure 162/104 H 07/01/24 15:26 Pulse Oximetry 100 07/01/24 15:26 Oxygen Delivery Method Room Air 07/01/24 15:26 Const: Awake, alert, nontoxic appearing Cardiac: regular rate, regular rhythm RESP: Mild increased work of breathing, speaking in complete sentences, but winded at end, diffuse expiratory wheezes Skin: Warm, Dry, intact, no rashes Neuro: AO x3, CN II-XII grossly intact, moves all extremities Course Orders Ordered: Acetaminophen (Acetaminophen 325 Mg Tablet) 650 mg PO Q6H PRN PRN Reason: Fever/Mild Pain (1-3) Albuterol (Albuterol 2.5 Mg/3 Ml Neb (Adult)) 2.5 mg INH [id number] PRN PRN Reason: Shortness Of Breath Last Admin: 07/01/24 22:07 Dose: 2.5 mg Documented By: Admin: 07/01/24 15:56 Dose: 2.5 mg Documented By: SAT Albuterol/Ipratropium (Albuterol/Ipratropium 3 Ml Ampul) 3 ml INH [id number] [facility] Famotidine (Famotidine 20 Mg Tablet) 20 mg PO BID [facility] Last Admin: 07/01/24 23:28 Dose: 20 mg Documented By: SR Azithromycin 500 mg/ Dextrose 250 mls @ 250 mls/hr IV Q24H [facility] Last Admin: 07/01/24 23:29 Dose: 250 mls/hr Documented By: SR Naloxone HCl (Naloxone 0.4 Mg/Ml Vial) 0.2 mg IV Q2MIN PRN PRN Reason: Opiate Reversal Prednisone (Prednisone 20 Mg Tablet) 40 mg PO DAILY [facility] Discontinued Medications Albuterol (Albuterol 2.5 Mg/3 Ml Neb (Adult)) 20 mg INH NOW ONE Stop: 07/01/24 17:37 Last Admin: 07/01/24 17:42 Dose: 20 mg Documented By: SAT Albuterol/Ipratropium (Albuterol/Ipratropium 3 Ml Ampul) 3 ml INH NOW ONE Stop: 07/01/24 15:38 Last Admin: 07/01/24 15:44 Dose: 3 ml Documented By: SAT Aspirin (Aspirin 81 Mg Chew Tab) 324 mg PO NOW ONE Stop: 07/01/24 15:35 Last Admin: 07/01/24 17:09 Dose: Not Given Documented By: RLS Dexamethasone (Dexamethasone 10 Mg/Ml Vial) 10 mg IV NOW ONE Stop: 07/01/24 17:37 Last Admin: 07/01/24 17:57 Dose: 10 mg Documented By: RLS Vital Signs Vital signs: Vital Signs - 8 hr 07/01/24 20:00 07/01/24 20:03 07/01/24 20:03 Pulse Rate 103 H 104 H Respiratory Rate 24 19 Blood Pressure 116/58 L Pulse Oximetry 94 97 MDM - SOB/Dyspnea Differential Diagnosis Differential diagnosis: Likely acute exacerbation of chronic obstructive airways disease, congestive heart failure and asthma with exacerbation Lab Data 07/01/24 15:44 07/01/24 15:44 Labs: Lab Results 07/01/24 07/01/24 Range/Units 15:44 15:44 WBC 9.4 (4.5-11.0) X10^3/uL RBC 5.25 (4.5-5.9) X10^6/uL Hgb 14.3 (13.5-17.5) g/dL Hct 43.1 (41-53) % MCV 82.1 (80-100) fL MCH 27.1 (26-34) PG MCHC 33.1 (30-36) % RDW 15.3 H (11.6-14.8) % Plt Count 248 (150-400) X10^3/uL Neut % (Auto) 66.0 (50-75) % Lymph % (Auto) 22.1 L (25-40) % [place] % (Auto) 9.1 (3-14) % Eos % (Auto) 2.2 (2-4) % Baso % (Auto) 0.6 (0-2) % Neut # (Auto) 6200 (5974-6297) /uL Lymph # (Auto) 2100 (8999-1743) /uL [place] # (Auto) 900 (0-900) /uL Eos # (Auto) 200 (0-450) /uL Baso # (Auto) 100 (0-100) /uL PT 11.5 (9.4-12.5) SECONDS INR 1.0 (0.9-1.3) APTT 32 (25.1-36.5) SECONDS Sodium 140 (137-145) mmol/L Potassium 3.9 (3.4-5.1) mmol/L Chloride 106 (98-107) mmol/L Carbon Dioxide 27 (22-32) mmol/L BUN 12 (9-20) mg/dL Creatinine 0.93 (0.66-1.25) mg/dL Estimated GFR > 60 (>60) mL/min BUN/Creatinine Ratio 12.9 (6-22) Glucose 107 H (70-100) mg/dL Lactate 1.1 (0.7-2.1) mmol/L Calcium 9.6 (8.4-10.2) mg/dL Magnesium 1.9 (1.6-2.3) mg/dL Total Bilirubin 0.6 (0.2-1.3) mg/dL AST 37 (17-59) IU/L ALT 40 (<50) IU/L Alkaline Phosphatase 58 (38-126) U/L Total Creatine Kinase 345 H (55-170) U/L Troponin I Cancelled < 0.012 NT-Pro-B Natriuret Pep < 20 (<125) pg/mL Total Protein 7.8 (6.3-8.2) g/dL Albumin 4.5 (3.5-5.0) g/dL Globulin 3.3 (1.7-4.1) g/dL Albumin/Globulin Ratio 1.4 (1.0-2.8) Lipase 152 (23-300) U/L Imaging Data Chest x-ray: Radiologist's Impression: PROCEDURE: XR CHEST 1V INDICATIONS: Shortness of breath TECHNIQUE: One view of the chest was acquired. COMPARISON: Outside Film, CR, XR CHEST 1 VIEW, 09/29/2023, 0:02. Outside Film, CT, CT ANGIO CHEST, 09/26/2023, 0:10. [facility], CR, XR CHEST 1V, 07/20/2023, 11:01. FINDINGS: Surgical changes and devices: None. Lungs and pleura: An incomplete inspiratory result is noted, causing a crowded appearance to the lung markings. No focal infiltrates are seen. No pneumothorax or significant pleural effusions are seen. Mediastinum: Mediastinal contours appear normal. Heart size is at the upper limits of normal. Bones and chest wall: No suspicious bony lesions. Overlying soft tissues appear unremarkable. IMPRESSION: Limited portable chest examination, without a significant cardiopulmonary abnormality identified. Dictated by: Ham Yu M.D. on 07/01/2024 at 16:07 Approved by: Ham Yu M.D. on 07/01/2024 at 16:08 [facility] Narrative Medical decision making narrative: Patient presenting for shortness of breath. Initially improved after nebulizers and steroids yesterday, however returned today and feels worse. Patient has already received steroids and nebulizers before my evaluation, however he still continues to have shortness of breath and diffuse wheezes. Saturations are technically stable on room air, however due to patient's increased work of breathing, wheezing, repeat visit to an emergency department plan to admit patient for further treatment. Patient in agreement at this time. Discharge Plan Departure Patient Disposition: Admitted as Observation Clinical Impression: Asthma with exacerbation, Shortness of Breath Admit Date/Time: 07/01/24 20:04 Admit Provider: Bere Garcia
--- NOTE | 2024-07-01 22:41 | PM.HP.1 ---
History of Present Illness History of Present Illness Date Patient Seen: 07/01/24 Time Patient Seen: 22:15 Chief complaint: SoB Narrative: This patient is a 33 year old male with sarcoidosis, asthma and obesity who presented to the ER for shortness of breath which has been ongoing for 3-4 days. He notes severe symptoms which are worse with activity and reports some relief with Duonebs and Dexamethasone given in the ER and reports similar symptoms in the past. He does report associated chills, diaphoresis, cough productive of green sputum and wheezing and reports having been seen in a different ER on 06/30/24 after which time his symptoms were briefly improved. He has been using his Albuterol rescue inhaler 2-3 times daily and denies any recent hospitalizations, sick contacts or travel. He was previously on Prednisone 10 mg daily for sarcoidosis until 02/2024 when he had an Achilles tendon repair. Of note he does report history of smoking and states that he quit smoking this year but continues to vape. In the ER, temperature was 98.5, pulse 124, respirations 18, blood pressure 124/75 and O2 saturation 95% on room air. WBC was 9.4, Hb 14.3, Hct 82.1, Plt 248, BUN 12, creatinine 0.93, glucose 107. CXR was negative. He is admitted for further medical management and monitoring. [facility] Medical History (Updated 07/01/24 @ 22:53 by Bere Garcia DO) Patient denies medical problems Social History household members: other Smoking Status: Current every day smoker substance use type: does not use Past History Past medical history: Asthma Sarcoidosis Tobacco abuse Obesity Past surgical history: Achilles tendon repair Lung biopsy Past family history: Diabetes mellitus, great grandmother Past social history: Lives at home with a friend. Ambulatory without assistance. Vapes, former smoker of cigarettes. Social alcohol. No drug use. Code status: Full code. Emergency contact is his mother Pedro Dennis . Meds Home Medications and Allergies Allergies Allergy/AdvReac Type Severity Reaction Status Date / Time No Known Drug Allergies Allergy Verified 07/01/24 15:33 Review of Systems Review of Systems Narrative: Reports chills and diaphoresis. Constitutional Comments: Reports headache. ENT Comments: No sinus congestion or sore throat. Cardiovascular Comments: Reports chest discomfort. No palpitations. Respiratory Comments: Reports shortness of breath, productive cough and wheezing. Gastrointestinal Comments: No abdominal pain, nausea, vomiting, diarrhea, constipation or blood in the stool. Genitourinary Comments: No dysuria or hematuria. Musculoskeletal Comments: No myalgias or arthralgias. Exam Vital Signs (past 8 hours): - 07/01/24 15:26 07/01/24 15:45 07/01/24 16:57 Temperature 98.5 F Pulse Rate 87 92 H 93 H Respiratory Rate 28 H 25 H 25 H Blood Pressure 162/104 H Pulse Oximetry 100 98 99 Oxygen Delivery Method Room Air Room Air Oxygen Flow Rate 07/01/24 16:58 07/01/24 16:58 07/01/24 17:00 Temperature Pulse Rate 88 Respiratory Rate 16 Blood Pressure 146/68 H 141/67 H Pulse Oximetry 99 Oxygen Delivery Method Room Air Oxygen Flow Rate 07/01/24 17:00 07/01/24 17:34 07/01/24 17:46 Temperature Pulse Rate 93 H 107 H 93 H Respiratory Rate 26 H 24 Blood Pressure Pulse Oximetry 100 98 93 Oxygen Delivery Method Room Air Oxygen Flow Rate 07/01/24 17:57 07/01/24 17:57 07/01/24 18:00 Temperature Pulse Rate 93 H 95 H Respiratory Rate 25 H 23 Blood Pressure 139/71 Pulse Oximetry 98 98 Oxygen Delivery Method Room Air Oxygen Flow Rate 07/01/24 18:00 07/01/24 18:30 07/01/24 18:30 Temperature Pulse Rate 95 H Respiratory Rate 18 Blood Pressure 162/71 H 149/79 H Pulse Oximetry 97 Oxygen Delivery Method Room Air Oxygen Flow Rate 07/01/24 19:00 07/01/24 19:01 07/01/24 19:01 Temperature Pulse Rate 108 H 108 H Respiratory Rate 20 22 Blood Pressure 124/75 Pulse Oximetry 98 97 Oxygen Delivery Method Oxygen Flow Rate 07/01/24 19:30 07/01/24 20:00 07/01/24 20:03 Temperature Pulse Rate 113 H 103 H Respiratory Rate 18 24 Blood Pressure 116/58 L Pulse Oximetry 95 94 Oxygen Delivery Method Oxygen Flow Rate 07/01/24 20:03 07/01/24 20:30 07/01/24 20:30 Temperature Pulse Rate 104 H 108 H Respiratory Rate 19 22 Blood Pressure 113/66 Pulse Oximetry 97 96 Oxygen Delivery Method Room Air Oxygen Flow Rate 07/01/24 20:50 07/01/24 21:52 07/01/24 22:35 Temperature 96.8 F L Pulse Rate 110 H Respiratory Rate 24 Blood Pressure 144/75 H Pulse Oximetry 97 97 Oxygen Delivery Method Room Air Room Air Oxygen Flow Rate 0 Oxygen Delivery Method Room Air Oxygen Flow Rate 0 Const Other: Awake, alert, oriented, no acute distress. Resp Other: Diffuse wheezing noted in all lung [place], mild tachypnea. Cardio Other: Normal heart sounds, regular rhythm, no murmurs. GI Other: Soft, nondistended, nontender, no masses or organomegaly. Extrem Other: Trace peripheral edema of bilateral lower extremities. Psych Other: Normal mood and affect. Answers questions appropriately. Objective Labs 07/01/24 15:44 07/01/24 15:44 Labs: Laboratory Results - last 24 hr 07/01/24 07/01/24 15:44 15:44 WBC 9.4 RBC 5.25 Hgb 14.3 Hct 43.1 MCV 82.1 MCH 27.1 MCHC 33.1 RDW 15.3 H Plt Count 248 Neut % (Auto) 66.0 Lymph % (Auto) 22.1 L [place] % (Auto) 9.1 Eos % (Auto) 2.2 Baso % (Auto) 0.6 Neut # (Auto) 6200 Lymph # (Auto) 2100 [place] # (Auto) 900 Eos # (Auto) 200 Baso # (Auto) 100 PT 11.5 INR 1.0 APTT 32 Sodium 140 Potassium 3.9 Chloride 106 Carbon Dioxide 27 BUN 12 Creatinine 0.93 Estimated GFR > 60 BUN/Creatinine Ratio 12.9 Glucose 107 H Lactate 1.1 Calcium 9.6 Magnesium 1.9 Total Bilirubin 0.6 AST 37 ALT 40 Alkaline Phosphatase 58 Total Creatine Kinase 345 H Troponin I Cancelled < 0.012 NT-Pro-B Natriuret Pep < 20 Total Protein 7.8 Albumin 4.5 Globulin 3.3 Albumin/Globulin Ratio 1.4 Lipase 152 Assessment & Plan Assessment and plan (1) Asthma with exacerbation: Status: Acute (2) Sarcoidosis: Status: Acute (3) Tobacco abuse: Status: Acute (4) Obesity: Status: Acute Assessment & Plan narrative: 1. Asthma exacerbation - present on admission, CXR negative. Received Albuterol, Duoneb therapy and Dexamethasone 10 mg in ER. Will continue with Duonebs every 6 hours and Prednisone 40 mg daily to be titrated with clinical improvement. Will check sputum culture, COVID, flu, and RSV screens and place on empiric Azithromycin. 2. Sarcoidosis - chronic, had been on Prednisone 10 mg daily until 02/2024; will need outpatient follow up and monitoring. 3. Tobacco abuse - chronic, now vaping. Will need cessation to improve fdc prognosis. Nicotine patch as needed for any withdrawal symptoms. 4. Obesity - chronic, would benefit from diet and weight loss for overall health. FEN: Regular GI prophylaxis: Famotidine DVT prophylaxis: SCDS to bilateral lower extremities Code status: Full code - Emergency contact is his mother Pedro Dennis Dispo: Admit to Medical Unit Time-Based Coding :: 40 spent with patient and on the chart (including review of chart, obtaining history, exam, reviewing outside data, placing orders, documenting exam and treatment plan, and counseling patient) on 07/01/24.
[2024-07-01] MEDS: FAMOTIDINE 20 MG TABLET PO (23:28)
[2024-07-01] MEDS: AZITHROMYCIN 500 MG in DEXTROSE 5% IN WATER 250 ML 250 MG IV (23:29)
[2024-07-02] VITALS (8 sets, daily range): BP systolic 119–177; BP diastolic 77–91; PULSE 78–98; RESP 16–24; TEMP 35.4–36.6; O2SAT 94–99
[2024-07-02 00:05] LABS: COVID-19 CEPHEID 4-PLEX PCR Negative (Negative); Influenza A - CEPHEID Flu A NEGATIVE (NEGATIVE); Influenza B - CEPHEID Flu B NEGATIVE (NEGATIVE); Respiratory Syncytial Virus Negative (Negative)
[2024-07-02 06:10] LABS: Add Manual Diff / Slide Review NO; Basophils Absolute Auto 100 /uL (0-100); Basophils Percent Auto 0.7 % (0-2); Eosinophils Absolute Auto 0 /uL (0-450); Eosinophils Percent Auto 0.2 % (2-4); Hematocrit 40.6 % (41-53); Hemoglobin 13.3 g/dL (13.5-17.5); Lymphocytes Absolute Auto 1200 /uL (1100-4500); Lymphocytes Percent Auto 16.3 % (25-40); Mean Corpuscular HGB Conc 32.7 % (30-36); Mean Corpuscular Hemoglobin 26.9 PG (26-34); Mean Corpuscular Volume 82.5 fL (80-100); Monocytes Absolute Auto 500 /uL (0-900); Monocytes Percent Auto 6.2 % (3-14); Neutrophils Absolute Auto 5900 /uL (1500-7000); Neutrophils Percent Auto 76.6 % (50-75); Platelet Count 230 X10^3/uL (150-400); Red Blood Cell Count 4.92 X10^6/uL (4.5-5.9); Red Cell Distribution Width 15.3 % (11.6-14.8); White Blood Cell Count 7.7 X10^3/uL (4.5-11.0)
[2024-07-02 06:21] LABS: BUN Creatinine Ratio 14.3 (6-22); Blood Urea Nitrogen 11 mg/dL (9-20); Calcium 9.4 mg/dL (8.4-10.2); Carbon Dioxide 24 mmol/L (22-32); Chloride 104 mmol/L (98-107); Estimated Glomerular Filt Rate > 60 mL/min (>60); Glucose 138 mg/dL (70-100); HEMOLYSIS < 15 (0-50); Potassium 4.1 mmol/L (3.4-5.1); Sodium 134 mmol/L (137-145)
[2024-07-02] MEDS: ALBUTEROL/IPRATROPIUM 3 ML AMPUL INH ×2 (08:08→13:26)
[2024-07-02] MEDS: predniSONE 20 MG TABLET 40 MG PO (08:25)
[2024-07-02] MEDS: FAMOTIDINE 20 MG TABLET PO (08:25)
[2024-07-02 11:12] LABS: Adenovirus Not Detected (Not Detect); B. parapertussis Not Detected (Not Detecte); Bordetella pertussis Not Detected (Not Detect); Chlamydophila pneumoniae Not Detected (Not Detect); Coronavirus 229E Not Detected (Not Detect); Coronavirus HKU1 Not Detected (Not Detect); Coronavirus NL 63 Not Detected (Not Detect); Coronavirus OC43 Not Detected (Not Detect); Human Metapneumovirus Not Detected (Not Detect); Human Rhinovirus/Enterovirus Not Detected (Not Detect); Influenza A Not Detected (Not Detect); Influenza B Not Detected (Not Detect); Mycoplasma pneumoniae Not Detected (Not Detect); Parainfluenza Virus 1 Not Detected (Not Detect); Parainfluenza Virus 2 Not Detected (Not Detect); Parainfluenza Virus 3 Not Detected (Not Detect); Parainfluenza Virus 4 Not Detected (Not Detect); Respiratory Syncytial Virus Not Detected (Not Detect); SARS- CoV-2 Not Detected (Not Detecte)
--- NOTE | 2024-07-02 13:01 | CM.DANOTE ---
Initial DCP Assessment Note Pt is a 33yo male, resident of [place], arrives with SOB. PMH includes sarcoidosis, asthma and obesity. Patient vapes per record review. PCP: LEE (2019) Payer: [employer] Reviewed chart, pt discussed in multidisciplinary rounds this morning. Resp panel neg thus far. Patient expected to remain admitted for an addtl 24-48 hrs. Patient lives independently with family and is expected to return upon discharge. Close outpatient follow up recommended. Consider discussion with the [facility] Care Transitions team to help with getting follow up scheduled. No barriers identified at this time to patient's safe discharge home w/family to assist; close outpatient f/u recommended. CM team will plan to follow clinical course closely. ANJU Duran Discharge Planning/Care Management CM Discharge Assessment Start: 07/02/24 12:58 Freq: Status: Active Protocol: Document 07/02/24 12:59 DARA (Rec: 07/02/24 13:01 DARA [id number]) Discharge Planning Assessment Assigned Cloud Consultant ANJU Gonzalez DPOA/Assigned Designee Name Lolita Sinclair [facility] [phone] Contact Information [phone] Advance Directives? No History Provided By Patient,Medical Record Prior Living Arrangements House Household Members other Type of transporation used prior to Drives own vehicle admit Independent with ADL's Yes Is patient alert and oriented? Yes Barriers to Discharge No Discharge Plan Home Transportation Arrangement Family Referrals Initiated None needed
[2024-07-02] MEDS: IBUPROFEN 400 MG TABLET PO (15:11)
--- NOTE | 2024-07-02 16:28 | PC.NURSE ---
Discharge Note Patient A&O, VSS, RA, no complaints of pain/discomfort. Discharge packet reviewed with patient, all questions/concerns addressed. PIV discontinued. Patient able to dress self and pack all belongings. Patient walked downstairs to [facility].
--- NOTE | 2024-07-19 15:34 | PC.NURSE ---
Late Entry. Azithromycin ended at 0030 time on 07/02/2024
--- NOTE | 2024-07-28 15:07 | PM.DS.1 ---
History of Present Illness History of Present Illness Chief complaint: SoB Narrative: Per H&P: This patient is a 33 year old male with sarcoidosis, asthma and obesity who presented to the ER for shortness of breath which has been ongoing for 3-4 days. He notes severe symptoms which are worse with activity and reports some relief with Duonebs and Dexamethasone given in the ER and reports similar symptoms in the past. He does report associated chills, diaphoresis, cough productive of green sputum and wheezing and reports having been seen in a different ER on 06/30/24 after which time his symptoms were briefly improved. He has been using his Albuterol rescue inhaler 2-3 times daily and denies any recent hospitalizations, sick contacts or travel. He was previously on Prednisone 10 mg daily for sarcoidosis until 02/2024 when he had an Achilles tendon repair. Of note he does report history of smoking and states that he quit smoking this year but continues to vape. In the ER, temperature was 98.5, pulse 124, respirations 18, blood pressure 124/75 and O2 saturation 95% on room air. WBC was 9.4, Hb 14.3, Hct 82.1, Plt 248, BUN 12, creatinine 0.93, glucose 107. CXR was negative. He is admitted for further medical management and monitoring. Discharge Providers Provider Date of admission: 07/01/24 20:04 Discharge Date: 07/02/24 Discharge provider: Candis Canada MD Summary Hospital Course Discharge Diagnosis: 1) Sarcoidosis exacerbation 2) Asthma exacerbation, ruled out 3) Nicotine dependence (vaping) 4) Class 3 obesity Hospital Course: Pt was admitted w/a presumed asthma exacerbation and initiated on steroids and breathing treatments. He felt significantly improved by the day following admission. Upon further discussion he had been dx'd w/sarcoidosis and had been on chronic steroids w/monthly weaning until he suffered an achilles tendon rupture requiring surgery and rehabilitation. He did well off of steroids for quite awhile. However, when he began having increased symptoms, he didn't contact his corporate communications specialist. He was seen at [facility] ED and received symptomatic treatment w/mild improvement and recurrent sxs that led him to represent, the 2nd time to [facility] ER. He was admitted for further treatment. Given his significant improvement w/steroids, lack of wheeze/evidence of asthma exacerbation, it was felt this most likely represented a sarcoidosis flare. He was able to ambulate w/o dificulty around the unit w/o dyspnea or desaturations. He was d/c'd on oral prednisone w/instructions to f/u w/his corporate communications specialist as soon as possible. He was d/c'd in stable condition. Status at Discharge Cognitive/behavioral status at discharge: at baseline, oriented Functional status at discharge: independent ambulation Overall status at discharge: patient is progressing back to baseline Time Spent with Patient Time spent: Greater than 30 minutes Exam Vital Signs (past 8 hours): Oxygen Delivery Method Room Air Oxygen Flow Rate 0 Const General: cooperative, well developed and No acute distress HENMT Head: normocephalic and atraumatic Mouth: oral mucosae normal, lip normal and tongue normal Resp Effort & Inspection: normal respiratory effort, able to speak in complete sentences and no audible wheezes Auscultation: clear to auscultation bilaterally Cardio Rate: regular rate Rhythm: regular rhythm Heart Sounds: S1 normal and S2 normal GI Palpation: soft and No tender Auscultation: normal bowel sounds Other: body habitus limits exam Skin General: no rashes or lesions noted Neuro General: patient alert and patient oriented x3 Extrem General: normal to inspection and No pedal edema Objective Labs 07/02/24 05:40 07/02/24 05:40 [facility] Medical History (Updated 07/01/24 @ 22:53 by Bere Garcia DO) Patient denies medical problems Social History household members: other Smoking Status: Current every day smoker substance use type: does not use Discharge Plan Discharge Plan Patient Disposition: Home Provider Discharge Comment: 1) You are likely experiencing a flare up of your sarcoid, rather than an asthma exacerbation 2) follow up with your corporate communications specialist's office tomorrow to schedule an appointment [facility] 3) Take prednisone each morning (as early as possible to avoid insomnia) 4) take pepcid to avoid steroid related ulcers Discharge orders & Medications Prescriptions: New prednisone 20 mg Tablet 40 mg PO DAILY Qty: 60 0RF Rx Instructions: Take 2 tabs each morning for 1 week, then 1.5 tabs daily until you see pulmonology famotidine [Pepcid AC] 20 mg Tablet 20 mg PO BID Qty: 60 0RF Diet/Activity/Treatments Diet: Regular Activity: As tolerated Oxygen: N/A Visit Report/Discharge Packet Instructions: DI for Sarcoidosis Stand Alone Forms: Patient Portal/API, Stroke Signs & Symptoms Discharge Data Attending Provider: Bere Garcia [place] Date/Time: 07/01/24 20:04
== END 2024-07-02 16:20 | disposition home or self-care (01) ==
LOC: ED 18:59 → AC 20:05
PROVIDERS: Family Medicine; Student in an Organized Health Care Education/Training Program; Admitting Provider Internal Medicine; Emergency Provider Emergency Medicine; Visit Provider Internal Medicine
DX: J45.901 Unspecified asthma with (acute) exacerbation (principal); D86.9 Sarcoidosis, unspecified; Z72.0 Tobacco use; E66.9 Obesity, unspecified
CPT/HCPCS: 0241U; 36415; 71045; 80048; 80053; 82550; 83605; 83690; 83735; 83880; 84484; 85025; 85610; 85730; 87070; 87205; 87633; 93005; 94640; 96365; 96375; 99284; G0378; A9270; J1100; J7613